=== PATIENT | male | born 1975 | race Caucasian/White ===

== ENCOUNTER 2018-04-05 11:51 | Day surgery (SDC) | payer BC ==
[2018-04-02 11:13] VITALS: BMI 43.0
[~2018-04-05 11:51] MED LIST: DEXAMETHASONE SOD PHOSPHATE 10 MG/ML 1 ML VIAL IV ONE; HYDROmorphone 0.5 MG/0.5 ML SYRINGE IVP PRN; LACTATED RINGERS 1,000 ML IV SCH; MIDAZOLAM 2 MG/2 ML VIAL IV PRN; ONDANSETRON 4 MG/2 ML VIAL IVP ONE; Pre Op ABX Message 1 EACH MISC MISCELLANE ONE
[2018-04-05 12:14] VITALS: TEMP 97.6
[2018-04-05] MEDS ORDERED: LIDOCAINE 1% 20 ML VIAL (10MG/ML) FOR IV START INTRADERMA ONE (12:20)
[2018-04-05] MEDS ORDERED: ROPIVACAINE 5 MG/ML 30 ML VIAL MISCELLANE ONE ×2 (13:30→13:53)
[2018-04-05] MEDS ORDERED: LIDOCAINE 2% (PF) 20 MG/ML 10 ML AMP SQ ONE (13:30)
[2018-04-05] MEDS ORDERED: MIDAZOLAM 2 MG/2 ML VIAL ONE (13:48)
[2018-04-05] MEDS ORDERED: KETAMINE 10 MG/ML 20 ML VIAL ONE (13:48)
[2018-04-05] MEDS ORDERED: fentaNYL (PF) 50 MCG/ML 2 ML AMP ONE (13:48)
[2018-04-05] MEDS ORDERED: PROPOFOL 10 MG/ML 20 ML VIAL IV ONE (13:48)
[2018-04-05] MEDS ORDERED: LIDOCAINE 1% INJ 10MG/ML (20 ML MDV) ONE (13:48)
[2018-04-05] MEDS ORDERED: LIDOCAINE 2% INJ 20 MG/ML SQ ONE (13:53)
[2018-04-05 14:26] VITALS: RESP 18
[2018-04-05 14:37] VITALS: BP 125/59; PULSE 79
--- NOTE | 2018-04-11 19:20 | OP ---
OPERATIVE REPORT PROCEDURE DATE: 04/05/2018 PREOPERATIVE DIAGNOSIS: Right carpal tunnel syndrome. POSTOPERATIVE DIAGNOSIS: Right carpal tunnel syndrome. PROCEDURE: Right carpal tunnel release. DESCRIPTION OF PROCEDURE: The patient was taken to the Operative Suite where a sedation was administered by the Department of Anesthesia. I then performed a local injection along the line of the incision with a combination of Marcaine and Xylocaine both without epinephrine. The hand was then prepped and draped in the usual manner. The arm was elevated, exsanguinated and the cuff was inflated to 250 mm of mercury. A longitudinal incision was made along the ring finger ray distal to the wrist crease. Dissection was taken through the skin and subcutaneous tissue, initially sharp through the skin and then blunt through the subcutaneous tissue to ensure protection of any potential terminal transverse branches of the palmar cutaneous nerve. The palmar fascia was then incised under direct vision longitudinally exposing the transverse carpal ligament. The transverse carpal ligament also was incised under direct vision. The dissection was then continued proximally beneath the skin under direct vision to release the distal forearm fascia. The median nerve was then reflected free of tenosynovium to ensure no adhesions. The tourniquet was then released. The wound was then irrigated and the skin was closed with a running 5-0 nylon suture. A soft bulky dressing was applied including a volar plaster splint holding the wrist in a neutral slightly extended position. The patient was then taken to the Recovery Room in satisfactory condition. PRAVEEN / IJN: [id number] /
== END 2018-04-05 14:54 | disposition home or self-care (01) ==
LOC: OR 11:51
PROVIDERS: ATTEND Orthopaedic Surgery Hand Surgery
DX: G56.03 Carpal tunnel syndrome, bilateral upper limbs (principal); E78.5 Hyperlipidemia, unspecified; I10 Essential (primary) hypertension; Z79.899 Other long term (current) drug therapy
CPT/HCPCS: 64721; J2001 ×2; J2250; J1100; J2405; J3010; J2795; J2704

== ENCOUNTER 2018-05-03 10:55 | Day surgery (SDC) | payer BC ==
[2018-04-27 14:23] VITALS: BMI 43.0
[~2018-05-03 10:55] MED LIST changes: +LIDOCAINE 1% 20 ML VIAL (10MG/ML) FOR IV START INTRADERMA PRN; -MIDAZOLAM 2 MG/2 ML VIAL IV PRN; +SCOPOLAMINE 1.5MG/72HR PATCH TRANSDERM ONE
[2018-05-03 11:55] VITALS: RESP 16
[2018-05-03] MEDS ORDERED: fentaNYL (PF) 50 MCG/ML 2 ML AMP ONE (12:25)
[2018-05-03] MEDS ORDERED: MIDAZOLAM 2 MG/2 ML VIAL ONE (12:25)
[2018-05-03] MEDS ORDERED: PROPOFOL 10 MG/ML 20 ML VIAL IV ONE (12:25)
[2018-05-03] MEDS ORDERED: BUPIVACAINE (PF) 0.5% 30 ML VIAL SQ ONE (12:32)
[2018-05-03] MEDS ORDERED: LIDOCAINE 2% INJ 20 MG/ML SQ ONE (12:32)
[2018-05-03 13:32] VITALS: BP 139/87; PULSE 67; TEMP 98
--- NOTE | 2018-05-03 18:55 | OP ---
OPERATIVE REPORT DATE OF SURGERY: 05/03/2018 PREOPERATIVE DIAGNOSIS: Left carpal tunnel syndrome. POSTOPERATIVE DIAGNOSIS: Left carpal tunnel syndrome. PROCEDURE: Left carpal tunnel release. PROCEDURE DESCRIPTION: The patient is taken to the Operative Suite where the procedure was done local with sedation. A light amount of IV sedation was provided by the Department of Anesthesia but the patient was kept alert enough to indicate any ill effect in the hand or fingers during the procedure. Two endoscopic portals were prepared and anesthetized in the usual way. The proximal portal was approximately 1 cm proximal to the distal wrist crease and just ulnar to the midline. The distal portal was longitudinal, located at the edge of the transverse carpal ligament, using the usual anatomical landmarks. Both incisions were anesthetized with 2% Xylocaine and 0.5% Marcaine, both without Epinephrine. The proximal incision was opened first, retractors were used for exposure and for hemostasis. Blunt dissection was taken through the subcutaneous tissue until the forearm fascia was identified. This was then incised longitudinally. By applying volar retraction at the distal aspect of the incision, the potential space beneath the forearm fascia and the bursa containing the flexor tensions was easily identified. A blunt probe was then inserted into this space down into the transverse carpal ligament. The undersurface of the transverse carpal ligament was palpated, and by running the dissector along its undersurface, a washboard effect could be palpated, insuring the proper position had been obtained. At this point, the distal incision was opened. Dissection was taken bluntly through the subcutaneous tissue to the palmar fascia. This is incised longitudinally, and the edge of the transverse carpal ligament was identified under direct vision. The spatula dissector was then brought through the distal incision to ensure the entire transverse carpal ligament was identified and the proper dissection planes had been attained. A trocar and slotted cannula assembly are inserted into the proximal incision. The hand was placed on the hernandez in an extended position. Retractors were placed into the distal incision so the trocar assembly could then be brought out through the distal incision under direct visualization. The trocar was removed leaving the slotted cannula. The endoscope then inserted in the proximal incision and the light and the focus were adjusted. Using a variety of knives, the transverse carpal ligament was released under direct vision. Complete release of the transverse carpal ligament was confirmed by a variety of means. First of all, the edges could be seen to directly retract apart as they exist under tension. In addition, the fat could be seen to fall into the cannula. Additionally, a probe could be palpated beneath the skin and the lights in the scope could be seen much more clearly beneath the skin. The trocar was reinserted into the slotted cannula and the assembly was removed. The hand was then taken out of the hand hernandez. The patient was asked to put the fingers through a full range of motion. The patient was asked of any numbness in the fingers and none was noted. Both incisions were closed with a single suture of 6-0 nylon. Soft, bulky dressing was applied and the patient was taken to the Recovery Room in satisfactory condition. MMODL / IJN: [id number] /
== END 2018-05-03 13:51 | disposition home or self-care (01) ==
LOC: OR 10:55
PROVIDERS: ATTEND Orthopaedic Surgery Hand Surgery
DX: G56.02 Carpal tunnel syndrome, left upper limb (principal); G47.33 Obstructive sleep apnea (adult) (pediatric); I10 Essential (primary) hypertension; E78.5 Hyperlipidemia, unspecified; E66.01 Morbid (severe) obesity due to excess calories; Z68.41 Body mass index [BMI] 40.0-44.9, adult; Z79.82 Long term (current) use of aspirin; Z79.899 Other long term (current) drug therapy
CPT/HCPCS: 29848; J2001; J2250; J1100; J2405; J3010; J2704

== ENCOUNTER → 2018-11-18 | Outpatient (CLI) | payer BC ==
[2018-11-18 16:53] LABS: Basophils % (A) 1 %; Eosinophils # (A) 0.1 k/uL (0-0.7); Eosinophils % (A) 1 %; HCT 45.3 % (39.0-53.0); HGB 14.9 gm/dL (13.0-17.5); Lymphocytes # (A) 1.3 k/uL (1.0-4.8); Lymphocytes % (A) 19 %; MCH 28.1 pg (25.0-35.0); MCHC 32.9 g/dL (31.0-37.0); MCV 85.3 fL (80.0-100.0); Mean Platelet Volume 6.8; Monocytes # (A) 0.4 k/uL (0-1.0); Monocytes % (A) 6 %; Neutrophils # (A) 4.7 k/uL (1.3-7.7); Neutrophils % (A) 71 %; Platelet Count 328 k/uL (150-450); RBC 5.31 m/uL (4.30-5.90); RDW 13.1 % (11.5-15.5); WBC 6.5 k/uL (3.8-10.6)
[2018-11-18 20:34] LABS: Erythrocyte Sedimentation Rate 11 mm/hr (0-15)
[2018-11-19 00:27] LABS: Rheumatoid Factor 8 IU/mL (0-15)
[2018-11-19 00:41] LABS: ALT 45 U/L (10-49); AST 35 U/L (14-35); African American GFR (CKD) 94.8 (60.0-200.0); C Reactive Protein <0.4 mg/dL (0.0-0.8); Calcium 9.4 mg/dL (8.7-10.3); Carbon Dioxide 26.9 mmol/L (21.6-31.8); Chloride 101 mmol/L (96-109); Glucose 87 mg/dL (70-110); Potassium 4.3 mmol/L (3.5-5.5); Sodium 138 mmol/L (135-145)
[2018-11-19 00:55] LABS: Creatine Kinase 194 U/L (35-257); Uric Acid 6.3 mg/dL (3.7-8.7)
[2018-11-19 00:56] LABS: Cyclic Citrull Pep IgG Unit <0.5 U/mL; Cyclic Citrullinated Pep IgG NEGATIVE (NEGATIVE)
[2018-11-19 09:02] LABS: HLA B27 NEGATIVE
[2018-11-19 12:27] LABS: Angiotensin-1 Converting Enz. 10 U/L (8-52)
== END | disposition home or self-care (01) ==
LOC: LABWHC1 15:37
PROVIDERS: ATTEND Orthopaedic Surgery
DX: M25.562 Pain in left knee (principal)
CPT/HCPCS: 36415; 80048; 82164; 82306; 82550; 84439; 84443; 84450; 84460; 84550; 85025; 85652; 86038; 86140; 86200; 86431; 86812

== ENCOUNTER → 2024-01-18 | Outpatient (CLI) | payer BC ==
--- NOTE | 2024-02-10 11:18 | CONS ---
CONSULTATION A 48-year-old gentleman has been evaluated in [facility] for possible obstructive sleep apnea-hypopnea syndrome. HISTORY OF PRESENT ILLNESS: Sleep-wake evaluation. Patient's usual sleep schedule from 11 p.m. to 7:00 a.m., 7 days a week. Sometimes the patient has difficulties to initiate sleep, has TV set in bedroom. The patient is snoring according to his , grinds his teeth and wakes up from sleep several times with nocturia. No history of hypnagogic hallucinations, sleep paralysis or cataplexy. During the day, the patient may feel sleepy while watching TV or lying down at rest on the afternoon. [place] Sleepiness Scale increased to 10. PAST MEDICAL HISTORY: Positive for hypertension, acid reflux, hyperlipidemia, gout, allergy, arthritis. PAST SURGICAL HISTORY: Appendectomy. MEDICATIONS: 1. Lisinopril. 2. Omeprazole. 3. Atorvastatin. 4. Allopurinol. 5. Zyrtec. SOCIAL HISTORY: Negative for smoking, alcohol consumption occasional. FAMILY HISTORY: Heart problems, stroke, asthma, sinus problems. REVIEW OF SYSTEMS: Snoring, awakenings from sleep, sleepiness during the day. No fevers. No double vision. No recent chest pain. No shortness of breath. No abdominal pain. No bleeding episodes. No blood in the urine. No seizure episodes. No dizziness. No blood in the stool or urine. No pain in the abdomen. No chest pain. No shortness of breath. PHYSICAL EXAMINATION: GENERAL: gentleman without distress. VITAL SIGNS: BP 150/93, HR 73, RR 20. Height 5 feet 8 inches, weight 322.6 pounds, body mass index 48.9. Temperature 98.7, oxygen saturation at room air 100%. HEENT: PERRLA, EOMI, evaluation of oropharynx showed tongue protrudes midline. Oropharynx, low position of soft palate, Mallampati 3. NECK: Supple. No JVD. Wide neck evaluation I cannot make corrections. LUNGS: Clear to percussion and to auscultation. Good air exchange. No wheezing or rhonchi. HEART: S1, S2 regular. No murmurs, gallops, or rubs. ABDOMEN: Obese. Soft and nontender. Bowel sounds are present. No organomegaly appreciated. EXTREMITIES: No clubbing or cyanosis. AMBULANCE DISPATCHER: Awake, alert, and oriented X3. Cranial nerves 2 to 7 intact. There is no fasciculation or atrophy. noted. No focal deficits observed. IMPRESSION: 1. Snoring, awakenings from sleep with nocturia, extremely low position of soft palate, Mallampati 3, extremely wide neck. [place] Sleepiness Scale 10. Obstructive sleep apnea-hypopnea syndrome. 2. Obesity, body mass index 48.93. 3. Hypertension. 4. Acid reflux. 5. Hyperlipidemia. 6. Gout. 7. Arthritis. 8. Allergy. 9. Status post appendectomy. PLAN: 1. Polysomnography for evaluation of patient breathing during sleep. 2. Following plan after reading sleep study. 3. Aggressive losing weight program. 4. No driving if feeling sleepiness. 5. Preferable position during the sleep on the side. Thank you very much for referring this patient for consultation. MMODL / IJN: [id number] / CHRISTIE
== END ==
LOC: 3 N SLEEP 11:45
PROVIDERS: ATTEND Internal Medicine
CPT/HCPCS: 99202

== ENCOUNTER → 2024-07-01 | Outpatient (CLI) | payer BC ==
--- NOTE | 2024-07-07 18:59 | P.PCN ---
Description of Procedure: CLINICAL: A home sleep apnea test has been done for confirmation of possible obstructive sleep apnea-hypopnea syndrome. DESCRIPTION OF PROCEDURE: RESULTS: Recording time was 6 hours 47 minutes. Evaluation time was 6 hours 37 minutes. Evaluation time is sufficient for making conclusion about results of the test. Raw data of sleep recording has been reviewed and is adequate. Respiratory channel showed 1 apneas and 92 hypopneas. Apnea-hypopnea index was 14.1 per hour. Pulse rate in the range between minimum 61, maximum 100, average 74 by computer calculation. Lowest desaturation was 81%. IMPRESSION: 1. Obstructive Sleep Apnea Hypopnea Syndrome. 2. Hypertension. Please see other impressions from consultation. PLAN: 1. The patient will be started on auto-PAP treatmentfor correction of respiratory abnormallities during sleep. 2. I will see patient for follow up visit to discuss results of the test, evaluate clinical response on treatment with PAP therapy and make any necessary adjustments related to mask fitting, pressure, and humidification. 3. Watching and losing weight. 4. Sleep hygiene with regular time in bed for at least 8 hours. 5. No driving if feeling any sleepiness. Thank you very much for allowing me to participate in the management of your patient. Sincerely, Markie Calvo MD, PhD, FAASM Diplomat of [employer] Sleep Medicine Board of [employer] Brand Director of [facility] [place] cc: Anai Sapp MD
== END ==
LOC: 3 N SLEEP 13:00
PROVIDERS: ATTEND Internal Medicine
DX: G47.33 Obstructive sleep apnea (adult) (pediatric) (principal); I10 Essential (primary) hypertension; Z91.018 Allergy to other foods; Z91.09 Other allergy status, other than to drugs and biological substances

== ENCOUNTER → 2024-12-01 | Outpatient (CLI) | payer BC ==
[2024-12-01 16:00] VITALS: BP 120/75; PULSE 82; RESP 16; TEMP 98.2
--- NOTE | 2024-12-01 17:18 | P.PROGSL ---
Subjective DATE: 12/01/2024 FOLLOW UP VISIT. Patient with obstructive sleep apnea hypopnea syndrome return to sleep center for follow-up visit. Recently patient had sleep study which documented obstructive sleep apnea hypopnea syndrome. Patient was initiated on PAP therapy and today is first visit after treatment was started. Patient was able to use PAP equipment every night for the whole night. The patient does not have significant problems with the mask, PAP pressure and humidification. [facility] sleepiness scale is 8, which is in normal range. I checked information from PAP unit. PAP unit pressure 5-15, average 9.6 cm H2O. Usage is 93% and 70% for more then 4 hours, average 5.5 hours per night. Leak is 0.8 l/m, which is in acceptable range. Apnea Hypopnea Index is 0.5, which is normal. MEDICATIONS: Please see below During physical exam: GENERAL: A pleasant patient without any distress. VITAL SIGNS: Please see below, weight 315 pounds. HEENT: PERRLA, EOMI.low position of soft palate, Mallapati 3. NECK: Supple. No JVD. LUNGS: Clear to percussion and to auscultation. Good air exchange. No wheezing or rhonchi. HEART: S1, S2 regular. ABDOMEN: Soft and nontender. Obese EXTREMITIES: No clubbing or cyanosis. CENTER MGR: Awake, alert, and oriented x3. No focal deficit. Impressions: 1. Obstructive sleep apnea-hypopnea syndrome. Patient demonstrated great compliance with treatment, benefiting from treatment. 2. Obesity. 3. Hypertension. 4. Hyperlipidemia. 5. Gout. 6. Acid reflux. 7. Allergy. 8. Arthritis. 9. Status post appendectomy. Plan: 1. Continue using PAP equipment every night for the whole night. 2. To change air filter at least 1-2 times per month. 3. PAP unit should stay lower then position of the head. 4. Advised patient to remove all remaining water from humidifier canister daily and make it dry after each usage. Refill canister with fresh distilled water before each usage. 5. Sleep hygiene with regular time in bed for at least 8 hours. 6. Precautions related to driving. No driving if feel any sleepiness. 7. I will maintain prescription for PAP supplies including mask, tube, filters. 8. Follow up visit in 8 months or earlier if patient has any problems. 9. Watching and losing weight. Thank you very much for allowing me to participate in the management of your patient. Markie Calvo MD, PhD, FAASM. Diplomat of [employer], Sleep Medicine Board by [employer] Labourer [facility] [place] Objective - Vital Signs Vital Signs: Vital Signs Temp 98.2 F 12/01/24 15:59 Pulse 82 12/01/24 15:59 Resp 16 12/01/24 15:59 BP 120/75 12/01/24 15:59 Pulse Ox 98 12/01/24 15:59 FiO2 Intake & Output 11/30/24 12/01/24 12/01/24 18:59 06:59 18:59 Weight 142.882 kg Home Medications: Home Medications Medication Instructions Recorded Confirmed Type Aspirin [Adult Low Dose Aspirin EC] 81 mg PO DAILY 05/27/17 04/27/18 History Atorvastatin [Lipitor] 40 mg PO HS 05/27/17 04/27/18 History Fexofenadine/Pseudoephedrine 1 each PO BID PRN 05/27/17 04/27/18 History [Kayleigh-D 12 Hour Tablet] Fluticasone Propionate [Flovent 50 mcg INHALATION HS 05/27/17 04/27/18 History Diskus] Omeprazole [PriLOSEC] 40 mg PO QAM 05/27/17 04/27/18 History allopurinoL [Zyloprim] 100 mg PO DAILY 05/27/17 04/27/18 History lisinopriL [Zestril] 20 mg PO QAM 05/27/17 04/27/18 History
== END | disposition home or self-care (01) ==
LOC: 3 N SLEEP 15:45
PROVIDERS: ATTEND Internal Medicine
DX: G47.33 Obstructive sleep apnea (adult) (pediatric) (principal); E66.9 Obesity, unspecified; I10 Essential (primary) hypertension; E78.5 Hyperlipidemia, unspecified; M10.9 Gout, unspecified; K21.9 Gastro-esophageal reflux disease without esophagitis; M19.90 Unspecified osteoarthritis, unspecified site; T78.40XA Allergy, unspecified, initial encounter; Z90.49 Acquired absence of other specified parts of digestive tract; Z99.89 Dependence on other enabling machines and devices; Z91.018 Allergy to other foods
CPT/HCPCS: 99212